=== PATIENT | female | born 1955 | race Caucasian/White ===

== ENCOUNTER → 2017-05-12 | Outpatient (RCR) | payer OTHER | END | disposition still patient (30) | LOC: MKS.ESL.PT | DX: M75.101 Unspecified rotator cuff tear or rupture of right shoulder, not specified as traumatic (principal); M25.511 Pain in right shoulder | CPT/HCPCS: G0283-GP ==

== ENCOUNTER 2017-08-07 14:00 | Outpatient (RCR) | payer OTHER | END 2017-08-12 | LOC: MKS.ESL.PT | DX: S46.011A Strain of muscle(s) and tendon(s) of the rotator cuff of right shoulder, initial encounter (principal) ==

== ENCOUNTER 2017-11-05 11:15 | Outpatient (RCR) | payer OTHER | END 2018-01-13 | disposition home or self-care (01) | LOC: MKS.ESL.PT | DX: M75.121 Complete rotator cuff tear or rupture of right shoulder, not specified as traumatic (principal) ==

== ENCOUNTER → 2018-01-08 | Outpatient (CLI) | payer SELFPAY ==
[2018-01-08 12:36] LABS: HEMATOCRIT 45.1 % (37.0-47.0); MEAN CELL VOLUME 91 fl (80.0-100.0); MEAN CORPUSCULAR HEMOGLOBIN 30 pg (27.0-31.0); MEAN CORPUSCULAR HGB CONC 33 g/dl (33.0-37.0); MEAN PLATELET VOLUME 11.1 fl (7.4-10.4); PLATELET COUNT 233 K/mm3 (130-400); RED BLOOD COUNT 4.96 M/mm3 (4.10-5.30); REDCELL DISTRIBUTION WIDTH-CV 14.7 % (11.5-14.5)
[2018-01-08 12:47] LABS: ALBUMIN 4.9 gm/dL (3.5-5.0); BILIRUBIN,TOTAL 0.8 mg/dL (0.0-1.0); CALCIUM 10.3 mg/dL (8.4-10.2); CHOLESTEROL RISK RATIO 4.6; CREATININE, serum 0.91 mg/dL (0.52-1.25); POTASSIUM 4.4 mmol/L (3.4-5.0); TOTAL PROTEIN 7.9 gm/dL (6.4-8.2)
[2018-01-08 13:16] LABS: THYROID STIMULATING HORMONE 0.605 uIU/mL (0.465-4.680)
== END ==
LOC: COL.LAB 12:02
DX: E03.9 Hypothyroidism, unspecified (principal); I10 Essential (primary) hypertension

== ENCOUNTER → 2018-06-02 | Outpatient (CLI) | payer SELFPAY ==
[2018-06-02 15:39] LABS: CHOLESTEROL 170 mg/dL (120-200); CHOLESTEROL RISK RATIO 4.5
[2018-06-02 15:55] LABS: TRIGLYCERIDE 532 mg/dL
== END ==
LOC: COL.LAB 15:00
PROVIDERS: Pediatrics Adolescent Medicine
DX: E03.9 Hypothyroidism, unspecified (principal); E53.8 Deficiency of other specified B group vitamins; E78.5 Hyperlipidemia, unspecified

== ENCOUNTER → 2018-08-13 | Outpatient (CLI) | payer OTHER ==
[~2018-08-13] MED LIST: FLEXERIL 1010 MG/TAB PO; LIDODERM 5% PATC1 EA TP
[2018-08-13 21:14] LABS: THYROID STIMULATING HORMONE 0.026 uIU/mL (0.465-4.680)
== END ==
LOC: ZLAB.FHCC 17:25
DX: E03.9 Hypothyroidism, unspecified (principal); E53.8 Deficiency of other specified B group vitamins

== ENCOUNTER → 2020-01-18 | Outpatient (CLI) | payer SELFPAY ==
[2020-01-18 14:46] LABS: HEMATOCRIT 44.9 % (37.0-47.0); HEMOGLOBIN 14.7 g/dl (12.5-16.0); MEAN CELL VOLUME 91 fl (80.0-100.0); MEAN CORPUSCULAR HEMOGLOBIN 30 pg (27.0-31.0); MEAN CORPUSCULAR HGB CONC 33 g/dl (33.0-37.0); MEAN PLATELET VOLUME 12.8 fl (7.4-10.4); PLATELET COUNT 192 K/mm3 (130-400); RED BLOOD COUNT 4.96 M/mm3 (4.10-5.30); REDCELL DISTRIBUTION WIDTH-CV 14.8 % (11.5-14.5)
[2020-01-18 15:25] LABS: ALANINE AMINOTRANSFERASE 35 U/L (9-52); ALBUMIN 4.5 gm/dL (3.5-5.0); ALKALINE PHOSPHATASE 104 U/L (50-136); ANION GAP 8 mmol/L (7-16); AST,SGOT 23 U/L (15-37); BILIRUBIN,TOTAL 0.5 mg/dL (0.0-1.0); BLOOD UREA NITROGEN 16 mg/dL (7-17); CALCIUM 9.8 mg/dL (8.4-10.2); CARBON DIOXIDE 28 mmol/L (22-30); CHLORIDE 107 mmol/L (98-107); CHOLESTEROL 185 mg/dL (120-200); CHOLESTEROL RISK RATIO 5.1; GLUCOSE 108 mg/dL (74-106); POTASSIUM 4.4 mmol/L (3.4-5.0); SODIUM 142 mmol/L (137-145)
[2020-01-18 15:43] LABS: TRIGLYCERIDE 607 mg/dL
== END ==
LOC: ZLAB.FHCC 12:12
PROVIDERS: Family Medicine
DX: I10 Essential (primary) hypertension (principal); E03.9 Hypothyroidism, unspecified

== ENCOUNTER → 2023-02-19 | Outpatient (CLI) | payer MEDICARE, MEDICAID | LOC: COL.RAD 07:35 | DX: M48.061 Spinal stenosis, lumbar region without neurogenic claudication (principal); M48.05 Spinal stenosis, thoracolumbar region; M51.36 Other intervertebral disc degeneration, lumbar region ==

== ENCOUNTER 2024-07-07 10:56 | Emergency (ER) | payer MEDICARE, MEDICAID ==
[~2024-07-07] VITALS: Ht 177.8 cm; Wt 95.9 kg
[~2024-07-07 10:56] MED LIST changes: +PREDNISONE20 MG PO
[2024-07-07 11:05] VITALS: TEMP 98.9
[2024-07-07 12:12] LABS: BASO % 0.2 % (0.0-2.0); EOS # 0.2 K/mm3 (0.0-0.7); GRAN # 5.8 K/mm3 (1.4-6.5); GRAN % 62.9 % (42.2-75.2); HEMATOCRIT 45.2 % (37.0-47.0); LYMPH # 2.5 K/mm3 (1.2-3.4); LYMPH % 27.2 % (20.0-51.0); MEAN CELL VOLUME 89 fl (80.0-100.0); MEAN CORPUSCULAR HEMOGLOBIN 29 pg (27-31); MEAN CORPUSCULAR HGB CONC 33 g/dl (33.0-37.0); MEAN PLATELET VOLUME 11.5 fl (7.4-10.4); MONO # 0.7 K/mm3 (0.1-0.6); MONO % 7.4 % (1.7-9.3); PLATELET COUNT 197 K/mm3 (130-400); RED BLOOD COUNT 5.11 M/mm3 (4.10-5.30); REDCELL DISTRIBUTION WIDTH-CV 13.9 % (11.5-14.5)
[2024-07-07 12:27] LABS: ALANINE AMINOTRANSFERASE 25 U/L (0-55); ALKALINE PHOSPHATASE 108 U/L (40-150); ANION GAP 15 mmol/L (7-16); AST,SGOT 18 U/L (5-34); BILIRUBIN,TOTAL 0.6 mg/dL (0.2-1.2); BLOOD UREA NITROGEN 10 mg/dL (10-20); CALCIUM 10.1 mg/dL (8.4-10.2); CHLORIDE 104 mEq/L (98-107); CREATININE, serum 0.87 mg/dL (0.57-1.11); GLUCOSE 107 mg/dL (70-99); MAGNESIUM 1.6 mg/dL (1.6-2.6); POTASSIUM 3.7 mEq/L (3.5-4.5); SODIUM 142 mEq/L (136-145); TOTAL PROTEIN 7.3 g/dl (6.2-8.1)
[2024-07-07 12:33] LABS: PROTHROMBIN TIME 11.1 SECONDS (9.7-12.8)
[2024-07-07 12:35] LABS: PARTIAL THROMBOPLASTIN TIME 29.2 SECONDS (26.0-37.0)
[2024-07-07 12:36] LABS: TROPONIN-I < 0.010 ng/mL (0.00-0.033)
[2024-07-07] MEDS ORDERED: Iohexol 300 - 100 ML VIAL IV ONE (13:23)
[2024-07-07] MEDS ORDERED: NS 100 ML IV SCH (13:23)
[2024-07-07] MEDS ORDERED: LOPRESSOR 225 MG/TAB PO (14:11)
[2024-07-07] MEDS ORDERED: PROTONIX 40MG T40 MG PO (14:11)
[2024-07-07 14:25] VITALS: BP 158/91; PULSE 90
== END 2024-07-07 14:25 | disposition home or self-care (01) ==
LOC: COL.ER 10:56
PROVIDERS: Family Medicine
DX: K21.00 Gastro-esophageal reflux disease with esophagitis, without bleeding (principal); I10 Essential (primary) hypertension; F17.210 Nicotine dependence, cigarettes, uncomplicated
CPT/HCPCS: Q9967